=== PATIENT | female | born 2000 | race Hispanic/Latino ===

== ENCOUNTER 2020-01-07 02:18 | Emergency (ER) | payer OTHER, SELFPAY ==
--- NOTE | 2020-01-07 02:20 | ED.NAVMDI ---
HPI - Nausea/Vomiting/Diarrhea General Chief complaint: Nausea/Vomiting/Diarrhea Stated complaint: emesis Time Seen by Provider: 01/07/20 02:20 History of Present Illness HPI Narrative: She reports that she had too much to drink and then she was vomiting. She last vomited on the way here. She thinks that she had about 8 beers. Her boyfriend was concerned because he took her temperature and it was 93. Temp here was normal. She does not have any complaints at this time. Related Data Allergies Allergy/AdvReac Type Severity Reaction Status Date / Time No Known Allergies Allergy Verified 01/07/20 02:44 Review of Systems Review of Systems: All systems reviewed & are unremarkable except as noted in HPI and below Constitutional: Constitutional: Denies fever(s) Cardiovascular: Cardiovascular: Denies chest pain Respiratory: Respiratory: Denies dyspnea Gastrointestinal: Gastrointestinal: Denies abdominal pain, Reports constipation, Reports nausea and Reports vomiting Genitourinary: Genitourinary: Denies dysuria Musculoskeletal: Musculoskeletal: Denies back pain Neurologic: Denies weakness [facility] Past Medical History Medical History (Updated 01/07/20 @ 02:38 by Deepak Monte MD) Factor 5 Leiden mutation, heterozygous Social History Social History (Updated 01/07/20 @ 02:36 by Deepak Monte MD) Smoking status: Never smoker Alcohol intake: current Exam Const: General: healthy appearing, no acute distress and alert Orientation/consciousness: patient oriented x3 HENMT: Head: normal to inspection Neck: Neck: normal visual inspection and no lymphadenopathy Chest: Chest palpation & inspection: no tenderness Resp: Effort & Inspection: normal respiratory effort Auscultation: clear to auscultation bilaterally, no rales, no rhonchi and no wheezes Cardio: Jugular venous distension: no JVD Rate: regular rate Rhythm: regular rhythm Heart sounds: no murmurs GI: Inspection: non-distended GI Palp: Yes Soft to palpation and No Tenderness to palpation present (GI) Skin: General skin exam: normal color Neuro: General: patient oriented x3 and moves all extremities Speech: Abnormal speech present slurred Extrem: General: no edema Psych: Appearance: well kempt Affect: normal affect Course Vital Signs Vital signs: Vital Signs Temperature 36.2 C L 01/07/20 02:23 Pulse Rate 117 H 01/07/20 02:23 Respiratory Rate 20 08/14/20 02:23 Blood Pressure 120/75 01/07/20 02:23 Pulse Oximetry 100 01/07/20 02:23 Temperature 36.2 C L 01/07/20 02:23 Pulse Rate 117 H 01/07/20 02:23 Respiratory Rate 01/07/20 02:23 Blood Pressure 120/75 01/07/20 02:23 Pulse Oximetry 100 01/07/20 02:23 MDM - Nausea/Vomiting/Diarrhea MDM Narrative Medical decision making narrative: Given PO zofran. Tolerating PO. Discharge Plan Discharge Clinical Impression: Alcohol intoxication Qualifiers: Complication of substance-induced condition: uncomplicated Qualified Code(s): F10.920 - Alcohol use, unspecified with intoxication, uncomplicated Patient Disposition: Home, Self-Care Condition: Stable Instructions: Alcohol Intoxication (ED) Follow-up/Referrals: PHYSICIAN,CLINICAL ATHLETIC INSTRUCTOR [Primary Care Provider] -
[2020-01-07 02:23] VITALS: BP 120/75; PULSE 117; RESP 20; TEMP 36.2; O2SAT 100
[2020-01-07] MEDS: ONDANSETRON HCL ODT 4 MG TABLET PO (02:36)
--- NOTE | 2020-01-07 03:07 | PC.NURSE ---
pt provided with water, pt keeping down without difficulty.
[2020-01-07 03:30] VITALS: BP 124/76; PULSE 101; RESP 22; TEMP 36.8; O2SAT 100
== END 2020-01-07 03:31 | disposition home or self-care (01) ==
PROVIDERS: Emergency Provider Emergency Medicine
DX: F10.920 Alcohol use, unspecified with intoxication, uncomplicated (principal); D68.51 Activated protein C resistance
CPT/HCPCS: 99283; A9270